=== PATIENT | female | born 1960 | race Caucasian/White ===

== ENCOUNTER 2020-07-11 00:40 | Inpatient (IN) | payer OTHER ==
[2020-07-11 01:23] LABS: #Basophils 0.1 thou/uL (0.0-0.2); #Eosinphils 0.2 thou/uL (0.0-0.7); #Lymphocytes 2.4 thou/uL (1.20-3.40); #Monocytes 0.5 thou/uL (0.11-0.59); #Neutrophils 5.9 thou/uL (1.40-6.50); %Basophils 0.7 % (0.0-1.0); %Eosinophils 1.8 % (0.0-10.0); %Lymphocytes 26.6 % (21.0-51.0); %Monocytes 5.7 % (0.0-10.0); %Neutrophils 65.1 % (42.0-75.0); Hemoglobin 13.5 g/dL (12.0-16.0); Mean Corpuscular HGB CONC 33.4 g/dL (32.0-36.0); Mean Corpuscular Hemoglobin 30.3 pg (27.0-31.0); Mean Corpuscular Volume 90.8 fL (78.0-98.0); Mean Platelet Volume 7.1 fL (7.4-10.4); Platelet Count 271 thou/uL (130-400); RBC Distribution Width 13.3 % (11.5-14.5); Red Blood Cell (RBC) Count 4.47 mill/uL (4.20-5.40); White Blood Cell (WBC) Count 9.1 thou/uL (4.8-10.8)
[2020-07-11 01:29] LABS: PTT 34.3 sec (22.9-36.1)
[2020-07-11 01:42] LABS: ALT (SGPT) 32 U/L (8-55); AST (SGOT) 39 U/L (5-34); Albumin 3.7 g/dL (3.5-5.0); Alkaline Phosphatase 162 U/L (40-110); Anion Gap 14 mmol/L (10-20); BUN (Urea Nitrogen) 13 mg/dL (9.8-20.1); Bilirubin, Total 0.5 mg/dL (0.2-1.2); Calc. Creatinine Clearance 0 mL/min (70-130); Carbon Dioxide 22 mmol/L (22-29); Chloride 105 mmol/L (98-107); Estimated GFR-MDRD 72; Globulin 3.3 g/dL (2.4-3.5); Glucose 125 mg/dL (70-105); Sodium 137 mmol/L (136-145)
[2020-07-11] MEDS ORDERED: Aspirin 325 MG TAB ONE (01:50)
[2020-07-11] MEDS ORDERED: Aspirin Chewable 81 MG TAB ONE ×2 (01:51)
[2020-07-11 02:05] LABS: CKMB 0.8 ng/mL (0-6.6)
[2020-07-11 03:32] VITALS: BMI 56.1
[2020-07-11] MEDS ORDERED: Ondansetron ODT 4 MG TAB SL PRN (03:39)
[2020-07-11] MEDS ORDERED: Ondansetron PF 4 MG/2 ML Vial IVP PRN (03:39)
[2020-07-11] MEDS ORDERED: Sodium Chloride 0.9% 1,000 ML IV SCH (03:39)
[2020-07-11] MEDS ORDERED: Acetaminophen 650 MG Suppository PR PRN (03:58)
--- NOTE | 2020-07-11 04:02 | HP ---
TIME OF ASSESSMENT: 0200 hours. PRIMARY CARE PHYSICIAN: Dr. Ayala. REASON FOR ADMISSION: CVA rule out. HISTORY OF PRESENT ILLNESS: Ms. Rowland is a 60-year-old woman, who was brought into the emergency department via EMS due to concerns for possible stroke. The patient states she was brushing her teeth around midnight and suddenly had difficulty holding her tooth brush in the right hand. She states that she dropped it several times, but denies noting any numbness or weakness in her hand. The patient states she then fell to the ground onto her knees. She was able to get herself back up and walked back to her bedroom. Her noted she had significant drooping on the left side of her face and had her gaze deviating to the right. She states she did not realize that she had any weakness or numbness on the left side of her face. Her notified her older sister who came in and immediately noticed left-sided facial weakness. Attempted to get her to squeeze her hand and she had weakness in her left hand as well, but able to lift arm some. They called for an ambulance and on arrival, was noted to have improvement in her symptoms. Per ED notes, EMS reported noting the left-sided facial droop as well as right-sided gaze on their arrival. Following assessment in the emergency department, decision was made to hold tPA due to significant improvement in her symptoms. Her NIH improved to 4. Initially on arrival, she had complete paralysis of her left side. Given the motor improvements, the decision was made to admit her for continued stroke workup and observation. She did undergo imaging of her head including a CT of the head and CT angiogram of the head and neck, both of which were reportedly unremarkable. Official reading pending at this time. She had an EKG done that showed normal sinus rhythm with a heart rate of 81. No ST changes and T-waves without any abnormalities. Laboratory studies were done and showed a normal full blood count. She had a sodium of 137, potassium 4, BUN 13, creatinine 0.82, GFR 72, glucose 125, calcium 9, AST 39, total bilirubin 0.5, ALT 32, alkaline phosphatase 162, CK-MB 0.8, troponin 0.036. Albumin 3.5. She was given 324 mg of aspirin p.o. in the emergency department. PAST MEDICAL HISTORY: 1. Morbid obesity. 2. Hypertension. 3. Hypothyroidism. PAST SURGICAL HISTORY: 1. D and C. 2. Left hip replacement. 3. Left ankle surgery. 4. Right carpal tunnel surgery. 5. Tonsillectomy. SOCIAL HISTORY: The patient lives with her . Denies any tobacco use, alcohol consumption, or illicit drug use. FAMILY HISTORY: Noncontributory. PHYSICAL EXAMINATION: GENERAL: The patient appears to be in no acute distress, but often fidgeting with frequent jerking movements of her legs, states this is chronic. HEENT: Normocephalic and atraumatic. Pupils are equal, round, and reactive to light. Abnormal extraocular movements. The patient with a right-sided gaze. On extraocular movement exam, able to follow my finger and bring her gaze forward, but unable to follow toward the left. The patient is unaware that she is unable to look to the left. Facial movements and facial sensation intact, though there does seem to be some very slight lag on the left side. No tongue deviation. Speech normal. NECK: Supple without lymphadenopathy. Full range of motion, passive and against resistance. No nuchal rigidity, stiffness, or tenderness. LUNGS: Clear to auscultation bilaterally without wheezes, rales, or rhonchi. CARDIAC: Regular rate and rhythm. ABDOMEN: Obese, soft, nontender, nondistended. Normoactive bowel sounds present. No guarding or rigidity. No renal angle tenderness. EXTREMITIES: Power intact in all limbs. Sensation intact as well. She does have abnormal jerking movements of her legs on occasion. NEUROLOGIC: Alert and oriented x3. SKIN: Warm and dry. She does have an abrasion of the left cheek, unclear how she sustained the injury. ALLERGIES: NO KNOWN DRUG ALLERGIES. CURRENT MEDICATIONS: 1. Ibuprofen. 2. Metoprolol tartrate. 3. Acetaminophen. 4. Provera. 5. Metoprolol succinate. 6. Nature-Throid 65 mg p.o. daily. Above medications will be verified. INVESTIGATIONS: As mentioned above in HPI. IMPRESSION AND PLAN: Ms. Rowland is a pleasant 60-year-old woman, who is being admitted for management of the following. 1. Cerebrovascular accident rule out. The patient with apparent left-sided weakness that has resolved since arriving to the emergency department and has a right-sided gaze that persists. Otherwise, neuro exam is unremarkable and symptoms have improved. Continue neuro checks. CT head and CT angiogram done and unremarkable as per Dr. Barajas. Report currently pending. We will schedule MRI for the morning as well as echo. Neuro consulted. The patient with abnormal jerking movement in her legs. We will obtain a prolactin to rule out any possibility of seizure-like activity. 2. Indeterminate troponin. EKG unremarkable. The patient without any chest pain. We will continue to trend troponins. Continue cardiac monitoring. 3. Hypothyroidism. We will check TSH. Reconcile home medications once verified. 4. Morbid obesity. The patient fell onto both knees, but denies any tenderness on exam. No pain. PT consulted. 5. Hypertension. Monitor blood pressure and reconcile medications once verified. 6. Deep venous thrombosis prophylaxis. Mechanical SCDs. 7. Code status full. Surrogate decision maker is her , Jonnie Rowland. 8. Case discussed with attending, who agrees upon care as described above. Job ID: [id number]
[2020-07-11 06:20] LABS: Bacteria/HPF None Seen HPF (None Seen); Bilirubin Negative (Negative); Blood, Urine Negative (Negative); Clarity Clear (Clear); Glucose, Urine (Dipstick) Normal (Negative); Ketone, Urine Negative (Negative); Leukocyte Negative Leu/uL (Negative); Nitrite Negative (Negative); Protein, Urine (Dipstick) Negative (Neg-Trace); RBC/HPF 0-3 HPF (0-3); Specific Gravity, Urine 1.029 (1.002-1.036); Urobilinogen Normal mg/dL (Less than 2); WBC/HPF 0-3 HPF (0-3); pH, Urine 7.5 (5.0-9.0)
[2020-07-11 06:21] LABS: Urine Culture Reflex No No
[2020-07-11 06:29] LABS: Amphetamine Not Detected (NotDetected); Barbiturates Screen Not Detected (NotDetected); Benzodiazepine Screen Not Detected (NotDetected); Cocaine Metabolite Screen Not Detected (NotDetected); Medtox Control Line Valid? VALID (VALID); Medtox Reader # READER 1; Methadone Not Detected (NotDetected); Methamphetamine Not Detected (NotDetected); Opiate Screen Not Detected (NotDetected); Oxycodone Screen Not Detected (NotDetected); Phencyclidine (PCP) Not Detected (NotDetected); THC/Cannabinoid Screen Not Detected (NotDetected); Tricyclic Screen Not Detected (NotDetected)
--- NOTE | 2020-07-11 07:26 | CT ---
PRELIMINARY REPORT/[facility]/EMERGENCY AFTER HOURS PROCEDURE Receipt of this report by the clinical staff was confirmed with SRAVAN NICHOLS DO by Adriana Canas on Jul 11, 2020 01:02:00 CDT. Addendum electronically signed by Adriana Canas on July 11, 2020 1:02:45 AM CDT EXAM: CT Head Without Intravenous Contrast. CLINICAL HISTORY: LEVEL 1 STROKE F58, LSN AROUND 0010. FELL IN SHOWER, L SIDED WEAKNESS AND STRONG R GAZE. PATIENT HAS SLURRED SPEECH. TECHNIQUE: Axial computed tomography images of the head/brain without intravenous contrast. COMPARISON: None provided. FINDINGS: BRAIN: No acute intraparenchymal hemorrhage. No mass lesion. No CT evidence for acute territorial infarct. N o midline shift or extra-axial collection. VENTRICLES: No hydrocephalus. ORBITS: The orbits are unremarkable. SINUSES AND MASTOIDS: The paranasal sinuses and mastoid air cells are clear. SOFT TISSUES: No significant facial or scalp soft tissue swelling evident. No radiopaque foreign body is seen. BONES: No acute skull fracture. IMPRESSION: No acute intracranial abnormality. ELECTRONICALLY SIGNED BY: Nimo Redman MD Jul 11, 2020 12:59:50 AM CDT This report is intended for review by the ordering physician only, in accordance of law. If you recei ve this report in error, please call [facility] at [phone]. FINAL REPORT Exam: Head CT without contrast HISTORY: Level 1 stroke. Fall. Last seen normal around midnight. Left-sided weakness. Strong right ga ze. Slurred speech. COMPARISON: none FINDINGS: Hemorrhage: No intraparenchymal hemorrhage or extra-axial hematoma. Brain parenchyma: Cortical ruiz-white matter differentiation is preserved. No mass effect or midline shift. Basilar cisterns are patent. Ventricular system: Ventricles and sulci are patent and symmetric. Calvarium: Intact. Sinuses and mastoid air cells: Adequate aeration. IMPRESSION: 1. This report is in agreement with initial report by [facility]. 2. No acute intracranial process. Transcribed Date/Time: 07/11/2020 7:44 AM
--- NOTE | 2020-07-11 07:33 | CT ---
PRELIMINARY REPORT/[facility]/EMERGENCY AFTER HOURS PROCEDURE This report was discussed with DO SRAVAN NICHOLS by Daya Corcoran on Jul 11, 2020 01:10:00 CDT. Addendum electronically signed by Daya Corcoran on July 11, 2020 1:09:33 AM CDT EXAM: CTA Head and Neck with Intravenous Contrast. CLINICAL HISTORY: LEVEL 1 STROKE F58, LSN AROUND 0010. FELL IN SHOWER, L SIDED WEAKNESS AND STRONG R GAZE. PATIENT HAS SLURRED SPEECH. TECHNIQUE: Axial CTA images of the head and neck performed with intravenous contrast. Two-dimensional MIP and/or three-dimensional MIP and volume rendered reformations were performed. Note: Per PQRS, the description of internal carotid artery percent stenosis, including 0 percent or n ormal exam, is based on [place] Symptomatic Carotid Endarterectomy Trial (NASCET) criteria. CONTRAST: With; ISOVUE 370, 95ML COMPARISON: None provided. FINDINGS: CTA NECK: COMMON CAROTID ARTERIES No significant stenosis. No dissection or occlusion. INTERNAL CAROTID ARTERIES No stenosis by NASCET criteria. No dissection or occlusion. VERTEBRAL ARTERIES The right vertebral artery is congenitally smaller than the left. Evaluation of the V2 segments is li mited due to overlying artifact and areas of stenosis or focal occlusion cannot be excluded. CTA HEAD: ANTERIOR CEREBRAL ARTERIES The left anterior communicating artery is small in size compared to the right without evidence of occ lusion. MIDDLE CEREBRAL ARTERIES No significant stenosis. No occlusion. No aneurysm. POSTERIOR CEREBRAL ARTERIES No significant stenosis. No occlusion. No aneurysm. BASILAR ARTERY No significant stenosis. No occlusion. No aneurysm. OTHER: SOFT TISSUES Evaluation of the neck is limited by extensive overlying soft tissues. BONES Degenerative changes of the cervical spine. IMPRESSION: No large vessel occlusion of the head and neck. The left anterior communicating artery is small in size compared to the right without evidence of occ lusion. Limited evaluation of the neck secondary to artifact due to extensive overlying soft tissues. Limite d evaluation of the V1 and V2 segments bilaterally. ELECTRONICALLY SIGNED BY: Nimo Redman MD Jul 11, 2020 1:06:26 AM CDT This report is intended for review by the ordering physician only, in accordance of law. If you recei ve this report in error, please call [facility] at [phone]. FINAL REPORT EXAM: CT ANGIOGRAM OF THE HEAD AND NECK INDICATION: Stroke COMPARISON: None TECHNIQUE: CT angiogram of the head and neck are performed in the axial plane. Three-dimensional refo rmatted images are submitted for interpretation. FINDINGS: CTA OF THE HEAD WITH AND WITHOUT CONTRAST: POSTCONTRAST CT OF BRAIN: Pathologic enhancement: No pathologic enhancement the brain. Postcontrast soft tissue neck CT: Aerodigestive tract:Aerodigestive tract is patent. No mucosal abnormality. Mass effect upon the hypop harynx due to medial deviation of bilateral internal carotid arteries. Sinuses: Adequate aeration of the visualized sinuses and mastoid air cells. Orbits: Bilateral ocular lenses are appropriately located. Both globes are intact. Retrobulbar fat is preserved. Symmetric attenuation the optic nerves and ocular rectus muscles. Salivary glands:Symmetric attenuation of the parotid and submandibular glands Thyroid gland: Appropriate attenuation Lymph nodes: No evidence of lymphadenopathy by size criteria. Paraspinal muscles: Symmetric attenuation of the sternocleidomastoid muscles. Appropriate attenuation of the paraspinal muscles. Cervical spine:Vertebral body height is maintained. No fracture. Moderate central canal stenosis at C 4-C5, C5-C6 and C6-C7 due to degenerative change. Varying degrees of neural foraminal narrowing. Limited evaluation by technique. Upper mediastinum and lung apices: Nonspecific opacities in the visualized lung parenchyma CTA OF THE NECK WITH CONTRAST: Aorta: Appropriate enhancement and luminal diameter. Minimal atherosclerosis Right carotid artery: Appropriate enhancement and luminal diameter. No significant stenosis based upo n NASCET criteria Left carotid: Appropriate enhancement and luminal diameter. No significant stenosis based upon NASCET criteria Subclavian arteries:Symmetric and patent Vertebral arteries:Symmetric cervical vertebral arteries. Dominant left vertebral artery. CTA OF THE BRAIN: Intracranial internal carotid arteries:Appropriate enhancement and luminal diameter Anterior circulation: Hypoplastic left A1 segment, likely congenital variant. No significant stenosis in the anterior circulation Intracranial vertebral arteries: Appropriate enhancement and luminal diameter. Limited evaluation of the PICA artery origin Posterior circulation: Appropriate enhancement and luminal diameter of the basilar artery and right P 1 segment. Left [employer] has a origin. IMPRESSION: 1. This report is in agreement with initial report by [facility]. 2. No evidence of significant stenosis at the level of the [place]. 3. No significant stenosis of the cervical carotid arteries, based upon NASCET criteria. Transcribed Date/Time: 07/11/2020 7:48 AM
[2020-07-11] MEDS: Enoxaparin Sodium 40 MG/0.4 ML SYRINGE SC SCH (08:56)
[2020-07-11] MEDS: Aspirin 81 mg Enteric Coated Tablet PO SCH (08:56)
[2020-07-11] MEDS: Famotidine/PF 20 mg/2ml Vial SLOW IVP SCH ×2 (08:56→21:30)
[2020-07-11] MEDS: Acetaminophen 325 MG TAB PO PRN (08:56)
[2020-07-11] MEDS ORDERED: Metoprolol Tartrate 50 MG TAB PO SCH (09:00)
[2020-07-11] MEDS ORDERED: THYROID PORK 65 MG PO SCH (09:00)
[2020-07-11] MEDS: Thyroid 60 MG TAB PO SCH (09:12)
--- NOTE | 2020-07-11 12:14 | EEG ---
DATE OF SERVICE: 07/11/2020 ATTENDING PHYSICIAN: Pari Welch MD REASON FOR THE TEST: Altered mental status. This EEG was performed using 24-channel [employer] video digital EEG machine with 24-disk electrodes. This was an extended 2 hours 6 minutes of inpatient video EEG recording. Digital analysis of the EEG was done for spike and seizure detection, which revealed no abnormalities. BACKGROUND: The posterior background rhythm is 9 to 10 hertz. The background rhythm attenuates with eye opening and enhances with eye closure. HYPERVENTILATION: Not performed. PHOTIC STIMULATION: Bioccipital symmetrical driving responses observed. SLEEP: Drowsiness is observed. EEG DIAGNOSIS: Normal awake and drowsy EEG. Job ID: [id number]
--- NOTE | 2020-07-11 13:00 | CON ---
NEUROLOGY CONSULTATION DATE OF CONSULTATION: 07/11/2020 REASON FOR CONSULTATION: Transient ischemic attack. HISTORY OF PRESENT ILLNESS: Ms. Rowland is a 60-year-old female, who was brought to the emergency room by EMS because of acute onset left-sided weakness. Per patient, she was brushing her teeth around midnight and she has problem holding her toothbrush and she dropped it several times. She also felt numb and fell to the ground. She got herself back and walked back to the bedroom and her noticed that she did have left facial droop and some gaze preference to the right. The also noticed that she has left-sided weakness and called an ambulance and decided to bring her to the emergency room for further evaluation. Per ED notes , EMS reported that the patient had a left-sided facial droop and as well as a right-sided gaze preference on arrival, but her other deficits are significantly improved including the left-sided focal weakness. She was not a candidate for tPA because of rapidly improving neurological deficits. Head CT was done in the emergency room, which was negative for acute intracranial pathology. CT angiogram of the head and neck were also unremarkable. EKG did show normal sinus rhythm. Labs were done, which were essentially unremarkable. She was given 324 mg of aspirin and was transferred to the stroke floor for further evaluation. The patient denies nausea, vomiting, headache, chest pain, abdominal pain, recent illness, focal paresthesias, loss of vision, blurred vision, vertigo, dizziness or loss of consciousness associated with yesterday episode. Per the patient, she has no recollection of the event for some time and she also reported abnormal jerking movements. REVIEW OF SYSTEMS: All 14 systems were reviewed and were negative except the pertinent positives and negatives mentioned in the HPI. PAST MEDICAL HISTORY: Morbid obesity, hypertension, and hypothyroidism. PAST SURGICAL HISTORY: Left hip replacement, right carpal tunnel surgery, left ankle surgery, and tonsillectomy. SOCIAL HISTORY: The patient is , lives with the . Denies smoking , alcohol or illegal drug use. FAMILY HISTORY: No family history of stroke. ALLERGIES: NO KNOWN DRUG ALLERGIES. HOME MEDICATIONS: 1. Ibuprofen. 2. Metoprolol tartrate. 3. Tylenol. 4. Provera. 5. Nature-Throid 65 mg p.o. daily. PHYSICAL EXAMINATION: VITAL SIGNS: Blood pressure 150/60, pulse 80, and respiratory rate 18. CVS: Regular rate and rhythm. CHEST: Clear. ABDOMEN: Soft. NECK: Supple. NEUROLOGICAL: Mental status, the patient is alert and oriented to person, place , and time. Recent and remote memory, clear. Fund of knowledge is appropriate. Speech is clear. Cranial nerves 2 through 12 intact. Motor muscle tone and bulk are normal. Strength 5/5 bilaterally. Sensory intact. Cerebellar: Intact Gait deferred due to the patient's safety reason. DATA REVIEWED: I reviewed the CT scan of the brain, which was negative for acute intracranial pathology. CT angiogram of the head and neck were also unremarkable. ASSESSMENT AND PLAN: Ms. Rowland is a 60-year-old female with a history significant for hypertension, presented with acute-onset left-sided weakness and right-sided gaze preference, which is now resolved, most likely transient ischemic attack; Seizure is low on the differential, cannot be completely ruled out because of episode of altered mental status and jerking episodes. MRI brain not possible due to weight so repeat HCT tomorrow. EEG to rule out underlying cortical irritability was reviewed and was negative for seizure activity. Neuro checks every 4 hours. Permissive control of blood pressure at this time. Strict control of blood glucose. Telemetry, 2D echo to evaluate for left ventricular ejection fraction. Continue home medications. DVT prophylaxis. Continue permissive control of blood pressure and control of blood glucose. Check hemoglobin A1c, fasting lipid panel, and TSH. Continue home medication. Continue medical management per primary team. Continue aspirin and high-intensity statin for secondary stroke prevention. We will continue to follow. PT/OT/speech. Plan discussed with the patient, nursing staff and primary attending Dr. Mchugh Thank you for the consult. Job ID: [id number] JOSÉ MIGUEL
[2020-07-11 13:06] LABS: SARS-CoV-2 MS2 Positive; SARS-CoV-2 N Gene Negative; SARS-CoV-2 S Gene Negative; SARS-CoV-2 by NAA Not Detected (NotDetected); SARS-CoV-2 orf1ab Negative
--- NOTE | 2020-07-11 14:28 | PDOC.HOSPP ---
- Subjective Encounter Date: 07/11/20 Encounter Time: 09:45 Subjective: pt up in bed no complains. - Objective Vital Signs & Weight: Vital Signs (12 hours) Temp Pulse Pulse Pulse Resp BP BP 07/11/20 11:20 97.5 F L 82 15 07/11/20 08:56 07/11/20 08:37 76 77 188/100 H 186/90 H 07/11/20 07:01 97.4 F L 77 15 07/11/20 03:32 97.7 F 75 14 BP Pulse Ox 07/11/20 11:20 179/79 H 96 07/11/20 08:56 94 L 07/11/20 08:37 07/11/20 07:01 176/89 H 96 07/11/20 03:32 135/70 94 L Weight Weight 358 lb 4.019 oz I&O: 07/10/20 07/11/20 07/12/20 06:59 06:59 06:59 Intake Total 803 Balance 803 Result Diagrams: 07/11/20 01:08 07/11/20 01:08 Hospitalist ROS - Review of Systems Cardiovascular: denies: chest pain, palpitations, orthopnea, paroxysmal noc. dyspnea, edema, light headedness, other Gastrointestinal: denies: nausea, vomiting, abdominal pain, diarrhea, constipation, melena, hematochezia, other - Medication Medications: Active Medications Generic Name Dose Route Start Last Admin Trade Name Freq PRN Reason Stop Dose Admin Acetaminophen 650 mg 07/11/20 03:58 07/11/20 08:56 Tylenol PO 650 mg Q4H PRN Administration Headache/Fever/Mild Pain (1-3) Aspirin 81 mg 07/11/20 09:00 07/11/20 08:56 Ecotrin PO 81 mg DAILY PAULINA Administration Enoxaparin Sodium 40 mg 07/11/20 09:00 07/11/20 08:56 Lovenox SC 40 mg 899 PAULINA Administration Famotidine 20 mg 07/11/20 09:00 07/11/20 08:56 Pepcid SLOW IVP 20 mg Q12HR PAULINA Administration Sodium Chloride 10 ml 07/11/20 09:00 07/11/20 08:57 Flush - Normal Saline IVF 10 ml Q12HR PAULINA Administration Thyroid 60 mg 07/11/20 09:00 07/11/20 09:12 [place] Thyroid PO 60 mg DAILY PAULINA Administration - Exam Neck: negative: supple, symmetric, no JVD, no thyromegaly, no lymphadenopathy, no carotid bruit, JVD Heart: negative: RRR, no murmur, no gallops, no rubs, normal peripheral pulses, irregular, diminshed peripheral pulses, murmur present, II/IV, III/IV Respiratory: negative: CTAB, no wheezes, no rales, no ronchi, normal chest expansion, no tachypnea, normal percussion, rales, rhonchi, tachypneic, wheezes Gastrointestinal: negative: soft, non-tender, non-distended, normal bowel sounds , no palpable masses, no hepatomegaly, no splenomegaly, no bruit, no guarding, no rigidity, tender to palpation, distended, diminished bowl sounds, voluntary guarding Hosp A/P (1) TIA (transient ischemic attack) Code(s): G45.9 - TRANSIENT CEREBRAL ISCHEMIC ATTACK, UNSPECIFIED Status: Acute (2) Obesity Code(s): E66.9 - OBESITY, UNSPECIFIED Status: Acute (3) HTN (hypertension) Code(s): I10 - ESSENTIAL (PRIMARY) HYPERTENSION Status: Acute - Plan will start pt on asa/stain. She cannot have MRI due to her obesity. eeg negative. She has no symptoms. spoke with neurology who wants to repeat a ct brain in am. If negative will discharge in am.
[2020-07-11] MEDS ORDERED: Iopamidol-370 76% 500 ML 1 ML ONE (16:08)
[2020-07-11] MEDS ORDERED: Atorvastatin Calcium 40 MG TAB PO SCH (21:00)
[2020-07-12 06:10] LABS: #Basophils 0.1 thou/uL (0.0-0.2); #Eosinphils 0.2 thou/uL (0.0-0.7); #Lymphocytes 2.6 thou/uL (1.20-3.40); #Monocytes 0.4 thou/uL (0.11-0.59); #Neutrophils 4.8 thou/uL (1.40-6.50); %Basophils 0.8 % (0.0-1.0); %Eosinophils 1.9 % (0.0-10.0); %Lymphocytes 31.8 % (21.0-51.0); %Monocytes 5.5 % (0.0-10.0); Hemoglobin 12.8 g/dL (12.0-16.0); Mean Corpuscular HGB CONC 31.4 g/dL (32.0-36.0); Mean Corpuscular Hemoglobin 28.5 pg (27.0-31.0); Mean Corpuscular Volume 90.9 fL (78.0-98.0); Platelet Count 262 thou/uL (130-400); RBC Distribution Width 13.4 % (11.5-14.5); White Blood Cell (WBC) Count 8.1 thou/uL (4.8-10.8)
[2020-07-12 06:32] LABS: Anion Gap 11 mmol/L (10-20); BUN (Urea Nitrogen) 7 mg/dL (9.8-20.1); Calc. Creatinine Clearance 215 mL/min (70-130); Calcium 8.9 mg/dL (7.8-10.44); Carbon Dioxide 23 mmol/L (22-29); Cardiac Risk 5.2 (Less than 4.5); Chloride 104 mmol/L (98-107); Cholesterol 160 mg/dl (< 200 Desired); Estimated GFR-MDRD 82; Glucose 112 mg/dL (70-105); HDL Cholesterol 31 mg/dL (>60 Neg Risk); LDL Cholesterol, Calculated 104 mg/dL; Potassium 3.4 mmol/L (3.5-5.1); Sodium 135 mmol/L (136-145); Triglycerides 123 mg/dL (Less than 150)
[2020-07-12] MEDS: Aspirin 81 mg Enteric Coated Tablet PO SCH (08:12)
[2020-07-12] MEDS: Enoxaparin Sodium 40 MG/0.4 ML SYRINGE SC SCH (08:12)
[2020-07-12] MEDS: Acetaminophen 325 MG TAB PO PRN (08:12)
[2020-07-12] MEDS: Thyroid 60 MG TAB PO SCH (08:12)
[2020-07-12] MEDS ORDERED: Famotidine 20 MG TAB PO SCH (09:00)
--- NOTE | 2020-07-12 09:23 | CT ---
CT OF THE BRAIN WITHOUT CONTRAST: Date: 07/12/2020 INDICATION: Rule out stroke. COMPARISON: Prior CT of the brain dated 07/11/2020. FINDINGS: Since the comparison examination, there has been interval development of acute infarct involving the right insular cortex and lateral aspect of the right frontal lobe. No intracranial hemorrhage is evid ent. No midline shift is evident. No hydrocephalus is noted. Mastoid air cells and paranasal sinuses are clear. IMPRESSION: Interval development of a right-sided stroke involving the right insular cortex and lateral aspect of the right frontal lobe. Findings called to Dr. Welch at 0708 hours on 07/12/2020. CODE CR. POS: BH
--- NOTE | 2020-07-12 11:59 | PDOC.NEUPN ---
- Subjective Encounter Date: 07/12/20 Subjective: Patient alert and awake and denies any deficits. Head CT positive for acute lacunar infarction - Objective Vital Signs & Weight: Vital Signs (12 hours) Temp Pulse Resp BP Pulse Ox 07/12/20 11:00 97.6 F 61 18 148/70 H 92 L 07/12/20 08:13 97 07/12/20 07:00 98 F 82 18 184/85 H 97 07/12/20 03:38 97.9 F 86 20 148/69 H 95 Weight Weight 358 lb 4.019 oz I&O: 07/11/20 07/12/20 07/13/20 06:59 06:59 06:59 Intake Total 1343 Balance 1343 Result Diagrams: 07/12/20 06:03 07/12/20 06:03 Radiology Reviewed by me: Yes EKG Reviewed by me: Yes ROS - Review of Systems Constitutional: denies: fever, chills, sweats, weakness, malaise, other Eyes: denies: pain, vision change, conjunctivae inflammation, eyelid inflammation, redness, other ENT: denies: ear pain, ear discharge, nose pain, nose discharge, nose congestion , mouth pain, mouth swelling, throat pain, throat swelling, other Respiratory: denies: cough, dry, shortness of breath, hemoptysis, SOB with excertion, pleuritic pain, sputum, wheezing, other Cardiovascular: denies: no pertinent history, AFIB, CAD, CHF, HTN, MT, Syncope, Hyperlipidemia, Mitral valve stenosis, Aortic stenosis, Valve insufficiency, Pulmonary hypertension, Other Gastrointestinal: denies: nausea, vomiting, abdominal pain, diarrhea, constipation, melena, hematochezia, other Genitourinary: denies: dysuria, frequency, incontinence, hematuria, retention, other Musculoskeletal: denies: neck pain, shoulder pain, arm pain, back pain, hand pain, leg pain, foot pain, other Skin: denies: rash, lesions, suzette, bruising, other Neurological: denies: weakness, numbness, incoordination, change in speech, confusion, seizures, other - Medication Medications: Active Medications Generic Name Dose Route Start Last Admin Trade Name Freq PRN Reason Stop Dose Admin Acetaminophen 650 mg 07/11/20 03:58 07/12/20 08:12 Tylenol PO 650 mg Q4H PRN Administration Headache/Fever/Mild Pain (1-3) Aspirin 81 mg 07/11/20 09:00 07/12/20 08:12 Ecotrin PO 81 mg DAILY PAULINA Administration Atorvastatin Calcium 40 mg 07/11/20 21:00 07/11/20 21:30 Lipitor PO 40 mg HS PAULINA Administration Enoxaparin Sodium 40 mg 07/11/20 09:00 07/12/20 08:12 Lovenox SC 40 mg 09 PAULINA Administration Famotidine 20 mg 07/12/20 09:00 07/12/20 08:34 Pepcid PO 20 mg BID PAULINA Administration Metoprolol Tartrate 50 mg 07/11/20 09:00 07/12/20 09:10 Lopressor PO 50 mg DAILY PAULINA Administration Sodium Chloride 10 ml 07/11/20 09:00 07/12/20 08:13 Flush - Normal Saline IVF 10 ml Q12HR PAULINA Administration Thyroid 60 mg 07/11/20 09:00 07/12/20 08:12 Mckenzie Thyroid PO 60 mg DAILY PAULINA Administration - Exam General Appearance: awake alert Eye: PERRL ENT: normocephalic atraumatic Neck: supple Respiratory: CTAB Cardiovascular: RRR Gastrointestinal: soft Extremities: no cyanosis Skin: normal turgor Neurological: CN's grossly intact, no new deficit Musculoskeletal: normal tone, no muscle wasting PSYCH: normal affect, normal behavior, A&O x 3 Results - Labs Result Diagrams: 07/12/20 06:03 07/12/20 06:03 Lab results: WBC 8.1 thou/uL (4.8-10.8) 07/12/20 06:03 Hgb 12.8 g/dL (12.0-16.0) 07/12/20 06:03 Hct 40.9 % (36.0-47.0) 07/12/20 06:03 MCV 90.9 fL (78.0-98.0) 07/12/20 06:03 Plt Count 262 thou/uL (130-400) 07/12/20 06:03 Neutrophils % 60.0 % (42.0-75.0) 07/12/20 06:03 ESR Westergren 56 mm/hr (Less than 30) 07/12/20 06:03 Sodium 135 mmol/L (136-145) L 07/12/20 06:03 Potassium 3.4 mmol/L (3.5-5.1) L 07/12/20 06:03 Chloride 104 mmol/L (98-107) 07/12/20 06:03 Carbon Dioxide 23 mmol/L (22-29) 07/12/20 06:03 BUN 7 mg/dL (9.8-20.1) L 07/12/20 06:03 Creatinine 0.73 mg/dL (0.6-1.1) 07/12/20 06:03 Glucose 112 mg/dL (70-105) H 07/12/20 06:03 Calcium 8.9 mg/dL (7.8-10.44) 07/12/20 06:03 Total Bilirubin 0.5 mg/dL (0.2-1.2) 07/11/20 01:08 AST 39 U/L (5-34) H 07/11/20 01:08 ALT 32 U/L (8-55) 07/11/20 01:08 Alkaline Phosphatase 162 U/L (40-110) H 07/11/20 01:08 CK-MB (CK-2) 1.0 ng/mL (0-6.6) 07/11/20 04:27 Troponin I 0.035 ng/mL (< 0.028) H 07/11/20 06:54 Serum Total Protein 7.0 g/dL (6.0-8.3) 07/11/20 01:08 Albumin 3.7 g/dL (3.5-5.0) 07/11/20 01:08 Urine Ketones Negative mg/dL (Negative) 07/11/20 06:10 Urine Blood Negative (Negative) 07/11/20 06:10 Urine Nitrite Negative (Negative) 07/11/20 06:10 Ur Leukocyte Esterase Negative Tila/uL (Negative) 07/11/20 06:10 Urine RBC 0-3 HPF (0-3) 07/11/20 06:10 Urine WBC 0-3 HPF (0-3) 07/11/20 06:10 Ur Squamous Epith Cells 4-6 HPF (0-3) A 07/11/20 06:10 Urine Bacteria None Seen HPF (None Seen) 07/11/20 06:10 - Radiology Interpretation MRI - head Additional Comment: Acute lacunar infarction on the right PN A/P (1) Acute CVA (cerebrovascular accident) Code(s): I63.9 - CEREBRAL INFARCTION, UNSPECIFIED Status: Acute (2) HTN (hypertension) Code(s): I10 - ESSENTIAL (PRIMARY) HYPERTENSION Status: Acute (3) Obesity Code(s): E66.9 - OBESITY, UNSPECIFIED Status: Acute - Plan Daily Plan: DVT proph w/SCDs 60 year old presented with acute left sided weakness which is now resolved. HCT positive for acute infarction. HCT was reviewed and was positive for acute lacunar infarction in the RMCA region. Carotid dopplers did not reveal hemodynamically significant stenosis. EEG reviewed and was negative for seizure activity. CTA head and neck negative for significant stenosis. 2D Echo pending. Neurochecks every 4 hours. Telemetry Continue aspirin and statin for secondary stroke prevention. Continue home medications. Continue medical management per primary team. PT/OT/Speech. Plan discussed during MDR rounds and with the patient in detail.
[2020-07-12 16:03] VITALS: BP 148/70; TEMP 97.6
--- NOTE | 2020-07-13 00:23 | DIS ---
DATE OF ADMISSION: 07/11/2020 DATE OF DISCHARGE: 07/12/2020 DISCHARGE DIAGNOSES: 1. Acute stroke. 2. Hypertension. 3. Obesity. HOSPITAL COURSE: The patient is a 60-year-old female, who initially presented to the hospital with stroke-like symptoms. She underwent a CTA, which did not show any acute abnormalities. She did undergo a brain CT initially, which was negative. She also had an EEG, which did not show any seizure. Given the fact that she weighed 358 pounds, she was unable to undergo a brain MRI. The patient at this time underwent a repeat CT scan the following day on 07/12, which indicated interval development of the right side stroke involving the right insular cortex and lateral aspect of the right frontal lobe. The patient was made aware of these results. She also had an echocardiogram, which indicated an EF of 55% to 60% with [id number] mitral regurgitation and [id number] tricuspid regurgitation. The patient will be discharged home. She will follow up with the primary. She is not on any aspirin at home. She is already on aspirin. We will add statin. She is on testosterone, I have told her to hold off on the testosterone, which she was supposed to be on control for her abnormal bleeding. I have told her not to do so. She needs to follow up with her primary first. She will continue her thyroid medication, metoprolol, and zinc. PHYSICAL EXAMINATION: VITAL SIGNS: The patient is 97.6, 61, 18, 95% on room air, and 140/70. GENERAL: She is awake, alert, and oriented x3. Does not appear in distress. CV: S1 and S2 present. No murmurs, rubs, or gallops. Again, she was seen by Neurology. Job ID: [id number]
[2020-07-13 15:12] LABS: ANA Symphony (Qualitative) Negative (Negative); ANA Symphony (Quantitative) 0.1 Ratio (< 0.7 Negative); dsDNA IgG Antibody 0.6 IU/mL (<10 Negative)
--- NOTE | 2020-07-14 15:35 | EKG ---
Test Reason : Blood Pressure : / mmHG Vent. Rate : 081 BPM Atrial Rate : 081 BPM P-R Int : 180 ms QRS Dur : 064 ms QT Int : 396 ms P-R-T Axes : 049 006 073 degrees QTc Int : 460 ms Normal sinus rhythm Possible Left atrial enlargement Abnormal ECG Confirmed by SRAVAN NICHOLS DO ([id number]), business editor EDOUARD GAYLE ([id number] on 07/14/2020 3:35:27 PM Referred By: Confirmed By:SRAVAN NICHOLS DO
== END 2020-07-12 16:00 | disposition home or self-care (01) | DRG 65 ==
LOC: ERS 00:40 → 2SE 02:19 → OBSVTOIN 08:18
PROVIDERS: ADMIT Internal Medicine; ATTEND Internal Medicine
DX: I63.81 Other cerebral infarction due to occlusion or stenosis of small artery (principal); G81.94 Hemiplegia, unspecified affecting left nondominant side; Z68.43 Body mass index [BMI] 50.0-59.9, adult; Z20.828 Contact with and (suspected) exposure to other viral communicable diseases; G83.9 Paralytic syndrome, unspecified; R29.704 NIHSS score 4; E66.01 Morbid (severe) obesity due to excess calories; I10 Essential (primary) hypertension; I08.1 Rheumatic disorders of both mitral and tricuspid valves; E03.9 Hypothyroidism, unspecified; Z96.642 Presence of left artificial hip joint; Z90.89 Acquired absence of other organs
CPT/HCPCS: 36415; 36600; 70450; 70496; 70498; 80048; 80053; 80061; 80306; 81001; 82553; 84146; 84484; 85025; 85610; 85652; 85730; 86038; 86225; 87635; 93005; 93306; 95712; 95816; 95819; 95957; J1650; J2997; Q9967; S0028; U0003

== ENCOUNTER 2020-09-11 17:30 | Outpatient (CLI) | payer OTHER | END 2020-09-11 17:31 | disposition home or self-care (01) | LOC: SLEEPLAB 17:30 | PROVIDERS: ATTEND Family Medicine | DX: G47.33 Obstructive sleep apnea (adult) (pediatric) (principal); G47.10 Hypersomnia, unspecified; I10 Essential (primary) hypertension; G47.00 Insomnia, unspecified | CPT/HCPCS: 95806 ==

== ENCOUNTER 2020-10-12 19:00 | Outpatient (CLI) | payer OTHER | END 2020-10-12 19:01 | disposition home or self-care (01) | LOC: SLEEPLAB 19:00 | PROVIDERS: ATTEND Family Medicine | DX: G47.33 Obstructive sleep apnea (adult) (pediatric) (principal); R06.83 Snoring; I10 Essential (primary) hypertension; G47.00 Insomnia, unspecified; E66.9 Obesity, unspecified; Z68.43 Body mass index [BMI] 50.0-59.9, adult | CPT/HCPCS: 95811 ==